=== PATIENT | male | born 1970 | race Two or more races ===

== ENCOUNTER 2021-05-25 13:26 | Outpatient (CLI) | payer OTHER | END 2021-05-25 13:31 | disposition home or self-care (01) | LOC: SONOGRAMA 13:26 → MAMO-SONO 13:30 → SONOGRAMA 13:31 | PROVIDERS: ATTEND General Practice | DX: K40.91 Unilateral inguinal hernia, without obstruction or gangrene, recurrent (principal) ==

== ENCOUNTER → 2021-05-26 07:41 | Outpatient (CLI) | payer OTHER | END | disposition home or self-care (01) | LOC: LAB 05-25 14:48 | PROVIDERS: ATTEND General Practice | DX: D64.89 Other specified anemias (principal); I11.9 Hypertensive heart disease without heart failure; N39.0 Urinary tract infection, site not specified; E78.2 Mixed hyperlipidemia; E11.69 Type 2 diabetes mellitus with other specified complication; N40.0 Benign prostatic hyperplasia without lower urinary tract symptoms; N40.1 Benign prostatic hyperplasia with lower urinary tract symptoms; B20 Human immunodeficiency virus [HIV] disease ==

== ENCOUNTER 2021-06-14 08:26 | Outpatient (CLI) | payer OTHER | END 2021-06-14 08:31 | disposition home or self-care (01) | LOC: LAB 08:26 | PROVIDERS: ATTEND Acupuncturist | DX: Z21 Asymptomatic human immunodeficiency virus [HIV] infection status (principal) ==

== ENCOUNTER → 2021-12-14 08:34 | Outpatient (CLI) | payer OTHER | END | disposition home or self-care (01) | LOC: LAB 08:34 | PROVIDERS: ATTEND Acupuncturist | DX: B20 Human immunodeficiency virus [HIV] disease (principal); R73.9 Hyperglycemia, unspecified ==

== ENCOUNTER 2024-12-23 13:51 | Outpatient (CLI) | payer OTHER | END 2024-12-23 13:53 | disposition home or self-care (01) | LOC: SONOGRAMA 13:51 | DX: R22.1 Localized swelling, mass and lump, neck (principal); B20 Human immunodeficiency virus [HIV] disease ==

== ENCOUNTER 2025-01-27 12:12 | Outpatient (CLI) | payer OTHER | END 2025-01-27 12:21 | disposition home or self-care (01) | LOC: TOM 12:12 | PROVIDERS: ATTEND Otolaryngology | DX: R22.1 Localized swelling, mass and lump, neck (principal) ==

== ENCOUNTER → 2025-02-24 08:51 | Outpatient (CLI) | payer OTHER ==
[2025-02-24 09:53] LABS: HEMATOCRIT 39.5 % (39.0-48.0); HEMOGLOBIN 13.2 g/dL (13-16.00); MEAN CELL VOLUME 86.5 fL (80.0-100.00); MEAN CORPUSCULAR HEMOGLOBIN 28.9 pg (27.00-32.0); MEAN CORPUSCULAR HGB CONC 33.4 g/dl (32.0-36.0); PLATELET COUNT 225 K/uL (150-450); RED BLOOD COUNT 4.57 M/uL (4.00-6.00)
[2025-02-24 09:54] LABS: RED CELL DISTRIBUTION WIDTH 16.5 % (11.5-14.5)
[2025-02-24 09:58] LABS: ERYTHROCYTE SEDIMENTATION RATE 31 mm/hr
[2025-02-24 10:17] LABS: ALBUMIN 3.3 gm/dL (3.4-5.0); BILIRUBIN TOTAL 0.37 mg/dL (0.3-1.2); CALCIUM 8.8 mg/dL (8.5-10.1); CREATININE SERUM 0.84 mg/dL (0.70-1.30); GFR 94.52; GLOBULINA 4.3 G/DL (2.4-3.5); POTASSIUM 4.42 mEq/L (3.5-5.1); TOTAL PROTEIN 7.6 gm/dL (6.4-8.2)
== END | disposition home or self-care (01) ==
LOC: LAB 08:51
PROVIDERS: ATTEND Internal Medicine Hematology & Oncology
DX: R59.0 Localized enlarged lymph nodes (principal)

== ENCOUNTER 2025-02-24 09:41 | Outpatient (CLI) | payer OTHER | END 2025-02-24 09:59 | disposition home or self-care (01) | LOC: TOM 09:41 | PROVIDERS: ATTEND Internal Medicine Hematology & Oncology | DX: C85.90 Non-Hodgkin lymphoma, unspecified, unspecified site (principal) ==

== ENCOUNTER 2025-04-11 08:08 | Outpatient (CLI) | payer OTHER | END 2025-04-11 08:10 | disposition home or self-care (01) | LOC: NUCLEAR 08:08 | PROVIDERS: ATTEND Internal Medicine Hematology & Oncology | DX: C85.90 Non-Hodgkin lymphoma, unspecified, unspecified site (principal) ==

== ENCOUNTER 2025-04-28 11:36 | Outpatient (CLI) | payer OTHER ==
[2025-04-28 12:16] LABS: BASO % 0.7 % (0.1-1.2); EOS # 0.46 (0.04-0.54); EOS % 7.5 % (0.7-7.0); HEMATOCRIT 41.6 % (40.1-51.0); HEMOGLOBIN 13.7 g/dL (13.7-17.5); LYMPH # 2.23 (1.18-3.74); LYMPH % 36.6 % (19.3-53.1); MEAN CORPUSCULAR HEMOGLOBIN 28.2 pg (25.6-32.2); MONO # 0.46 (0.24-0.82); MONO % 7.5 % (4.7-12.5); NEUT # 2.89 (1.56-6.13); NEUT % 47.4 % (34.0-71.1); PLATELET COUNT 282 K/uL (163-369); RED BLOOD COUNT 4.86 M/uL (4.63-6.08); RED CELL DISTRIBUTION WIDTH 15.9 % (11.6-14.4)
[2025-04-28 13:16] LABS: BILIRUBIN TOTAL 0.59 mg/dL (0.3-1.2); CALCIUM 9.4 mg/dL (8.5-10.1); CREATININE SERUM 0.78 mg/dL (0.70-1.30); GFR 102.96; POTASSIUM 4.48 mEq/L (3.5-5.1)
== END 2025-04-28 12:05 | disposition home or self-care (01) ==
LOC: LAB 11:36
PROVIDERS: ATTEND Internal Medicine Hematology & Oncology
DX: C85.90 Non-Hodgkin lymphoma, unspecified, unspecified site (principal)